=== PATIENT | male | born 1950 | race Caucasian/White ===

== ENCOUNTER → 2018-02-20 | Outpatient (CLI) | payer MEDICARE, OTHER ==
[~2018-02-20] MED LIST: LEVITRA20 MG PO; LOTREL 10-20 M1 EACH; NOHOMEMEDICATIONS; NORCO 5-325 TA1 EACH PO; VERAPAMIL ER200 MG PO
== END ==
LOC: M.ULTRA 10:28
DX: M79.89 Other specified soft tissue disorders (principal); M79.662 Pain in left lower leg

== ENCOUNTER 2018-05-26 14:04 | Emergency (ER) | payer MEDICARE, OTHER ==
[~2018-05-26] VITALS: Ht 170.2 cm; Wt 77.1 kg
[~2018-05-26 14:04] MED LIST changes: -LEVITRA20 MG PO; -VERAPAMIL ER200 MG PO
[2018-05-26 15:52] VITALS: BP 162/74
== END 2018-05-26 15:52 | disposition home or self-care (01) ==
LOC: M.ERS 14:04
DX: S61.312A Laceration without foreign body of right middle finger with damage to nail, initial encounter (principal); Z88.2 Allergy status to sulfonamides; W29.0XXA Contact with powered kitchen appliance, initial encounter; Y93.89 Activity, other specified; Y92.89 Other specified places as the place of occurrence of the external cause; Y99.8 Other external cause status

== ENCOUNTER 2018-06-04 17:31 | Inpatient (IN) | payer MEDICARE, OTHER ==
[~2018-06-04] VITALS: Ht 170.2 cm; Wt 83.0 kg
--- NOTE | ~2018-06-04 | CON ---
[facility] [address] [place] [address] CONSULTATION Name: MARGARITA JOSHI Room: [place] [address] ADM IN M.R.#: [id number] Admission: 06/04/18 Attend Phys: Tricia Crowder Discharge: Date of : 54 Report #: [id number] THIS REPORT FOR: //name// CC: Chance Dunham DATE OF SERVICE: 06/05/2018 REQUESTING PHYSICIAN: Ambar Dunham M.D. REASON FOR CONSULTATION: Acute kidney injury. HISTORY OF PRESENT ILLNESS: The patient is a 68-year-old gentleman, with medical history significant for hypertension, presents with complaints of not feeling well, being tired, complained also of feeling that he has some fluid in his belly. He was admitted to the hospital with diagnosis of acute kidney injury. Creatinine was 5. When I discussed his symptoms with the patient, he told me that he has been feeling well for several days; however, for the last couple of months, he is having problems urinating. He said sometimes he has to sit down and put some pressure on the bladder to make sure he can urinate. He also had feeling that his belly was filling up with fluids and those symptoms were present for last 2 months. The patient has been very active physically, been exercising, swimming and doing some other cardiovascular programs. SOCIAL HISTORY: No tobacco or alcohol abuse, is very active physically. MEDICATIONS: Prior to admission included verapamil. REVIEW OF SYSTEMS: Positive for the symptoms as mentioned earlier. PHYSICAL EXAMINATION: GENERAL: He is awake, alert, oriented. VITAL SIGNS: Blood pressure 137/97, heart rate is 74, afebrile. HEENT: Pupils are round. NECK: Supple. LUNGS: Clear. CARDIOVASCULAR: Regular rate. ABDOMEN: Soft. A mass is palpable in his suprapubic area. It is soft, round, about 20 cm in diameter and immediately suspected that is distended bladder. ASSESSMENT: Acute kidney injury due to obstruction. I asked the nurse to place García catheter immediately and 2.3 liters of clear urine was drained. The mass that was palpable in the abdomen immediately came down and nonpalpable anymore that confirms that, that was an overdistended bladder. He has been having this problem for the last couple of months, so I expect that there is some injury to the kidney that may [place] [address] CONSULTATION Name: MARGARITA JOSHI Room: [address] IN [facility]#: [id number] Admission: 06/04/18 Attend Phys: Tricia Crowder Discharge: Date of : 54 Report #: [id number] PLAN: To keep the García catheter and continue with the fluids with respect to his postobstructive diuresis and will consult Urology. Follow his labs. Thank you very much for asking my opinion on acute kidney injury. By: [id number] PREMA Ramirez
[2018-06-04 17:36] VITALS: BP 207/118
[2018-06-04] MEDS ORDERED: LEVITRA20 MG PO (17:42)
[2018-06-04] MEDS ORDERED: VERAPAMIL ER200 MG PO ×2 (17:46)
[2018-06-04 17:57] LABS: ABSOLUTE BASOPHILS 0.1 thou/uL (0.0-0.2); ABSOLUTE EOSINOPHILS 0.5 thou/uL (0.0-0.7); ABSOLUTE LYMPHOCYTES 1.5 thou/uL (0.8-5.3); ABSOLUTE MONOCYTES 0.9 thou/uL (0.0-1.2); ABSOLUTE NEUTROPHILS 8.7 thou/uL (1.6-8.1); BASOPHILS 1.1 %; EOSINOPHILS 4.2 %; HEMATOCRIT 38.4 % (42.0-52.0); HEMOGLOBIN 12.2 gm/dL (14.0-18.0); LYMPHOCYTES 12.6 %; MCH 28.2 pg (26.0-34.0); MCHC 31.9 g/dL (28.0-37.0); MCV 88.4 fL (80.0-100.0); MONOCYTES 7.5 %; MPV 7.7 fl. (7.2-11.1); NUCLEATED RBCS 0 /100WBC; PLATELET COUNT* 293 thou/uL (150-400); POLYS 74.6 %; RBC 4.34 mil/uL (4.50-6.00); RDW-CV 14.1 % (10.5-14.5); WBC 11.7 thou/uL (4.0-11.0)
[2018-06-04 18:04] LABS: ANION GAP 12 mmol/L (7-16); BUN 63 mg/dL (7-18); CALCIUM 9.3 mg/dL (8.5-10.1); CHLORIDE 105 mmol/L (98-107); CO2 23 mmol/L (21-32); CREATININE 5.1 mg/dL (0.6-1.3); GLUCOSE 121 mg/dL (70-99); POTASSIUM 4.6 mmol/L (3.5-5.1); SODIUM 140 mmol/L (136-145)
[2018-06-04 18:06] LABS: APTT 29.5 Seconds (25.0-31.3)
[2018-06-04 18:21] LABS: ALBUMIN 4.1 g/dL (3.4-5.0); ALKALINE PHOSPHATASE 60 U/L (46-116); CK-MB MASS 2.1 ng/mL (<0.5-3.6); LIPASE 257 U/L (73-393); MAGNESIUM 2.3 mg/dL (1.8-2.4); NT-PRO BRAIN NAT PEPTIDE 9503 pg/mL (<300); SGOT 17 U/L (15-37); SGPT 31 U/L (30-65); TOTAL BILIRUBIN 0.4 mg/dL (<0.1-1.0); TOTAL PROTEIN 7.9 g/dL (6.4-8.2); TROPONIN-I LEVEL <0.06 ng/mL (<0.06)
[2018-06-04 20:28] VITALS: BP 165/103
[2018-06-04 22:45] VITALS: BP 159/98
[2018-06-05] VITALS: BP 139/68
[2018-06-05 04:00] VITALS: BP 109/51; BP 137/97
--- NOTE | 2018-06-05 05:20 | NUR ---
PT RECEIEVED FROM ED AT 2039. SAT MAINTAINED IIN 2L NC. ALERT AND ORINETED X4. CALL LIGHT WITHIN REACH AND BED IN LOW POSITION. DENIES ANY CHEST PAIN AND SOB. PT BP 165/103, MEDICATION GIVEN PER EMAR, BP-139/69. PT IS ON NPO FOR CARDIOLOGY CONSULT. HOURLY ROUNDING DONE FOR PT SAFETY.
[2018-06-05 06:10] LABS: ALBUMIN 3.3 g/dL (3.4-5.0); CALCIUM 8.4 mg/dL (8.5-10.1)
--- NOTE | 2018-06-05 07:20 | NUR ---
CHANGE OF SHIFT REPORT GIVEN PATIENT SEEN AT BEDSIDE IN BED ASLLEP ASSUMED PATIENT CARE
[2018-06-05 08:31] LABS: URINE BILIRUBIN NEGATIVE (Negative); URINE BLOOD NEGATIVE (Negative); URINE CLARITY CLEAR; URINE COLOR YELLOW; URINE GLUCOSE-RANDOM NEGATIVE (Negative); URINE KETONES NEGATIVE (Negative); URINE LEUKOCYTES TRACE (Negative); URINE NITRITE NEGATIVE (Negative); URINE PROTEIN NEGATIVE (Negative); URINE UROBILINOGEN 0.2 E.U./dl (0.2-1.0)
[2018-06-05 08:58] LABS: BACTERIA 1-9 Few /HPF (None Seen); CASTS None Seen /LPF (None Seen); CRYSTALS None Seen /LPF (None Seen); MUCUS 0-3 Light strn/LPF (None Seen); SQUAMOUS 0-3 Few /LPF (0-3); URINE RBC 0-2 Rare /HPF (0-2); URINE WBC 0-5 Rare /HPF (0-5)
[2018-06-05 09:45] LABS: CHOLESTEROL 151 mg/dL (<200); HDL CHOLESTEROL 48 mg/dL (>40); LDL CHOLESTEROL 83 mg/dL (<100); TC:HDL 3.1 Ratio (Not establshd); TRIGLYCERIDE 101 mg/dL (<150); VLDL 20 mg/dL (<40)
[2018-06-05 09:46] LABS: SERUM ASSESSMENT Clear
[2018-06-05 11:42] VITALS: BP 143/91
--- NOTE | 2018-06-05 13:02 | 2DMMODE ---
[place] [address] 2 D/M-MODE ECHOCARDIOGRAM Name: MARGARITA JOSHI Room: [facility] ADM IN [facility]#: [id number] Admission: 06/04/18 Attend Phys: Ambar Dunham Discharge: Date of : 54 Date of Service: 06/05/18 1302 Report #: [id number] THIS REPORT FOR: //name// APPROVED REPORT Study performed: 06/05/2018 11:11:19 EXAM: Comprehensive 2D, Doppler, and color-flow Echocardiogram Patient Location: In-Patient Room #: [facility] Status: routine BSA: 2.13 HR: 90 bpm BP: 137/97 mmHg Other Information Study Quality: Good Indications Dyspnea 2D Dimensions IVSd: 13.06 (7-11mm) LVOT Diam: 20.55 (18-24mm) LVDd: 57.17 mm PWd: 10.64 (7-11mm) Ascending Ao: 33.13 (22-36mm) LVDs: 52.55 (25-40mm) Aortic Root: 30.61 mm Volumes Left Atrial Volume (Systole) LA ESV Index: 25.20 mL/m2 Aortic Valve AoV Peak Alexis.: 0.95 m/s AO Peak Gr.: 3.59 mmHg LVOT Max P.23 mmHg AO Mean Gr.: 2.27 mmHg LVOT Mean P.65 mmHg LVOT Max V: 0.56 m/s AO V2 VTI: 14.88 cm LVOT Mean V: 0.37 m/s JUDITH (VTI): 2.09 cm2 LVOT V1 VTI: 9.36 cm Mitral Valve E/A Ratio: 1.33 MV Decel. Time: 103.60 ms MV E Max Alexis.: 0.80 m/s MV PHT: 30.04 [place] [address] 2 D/M-MODE ECHOCARDIOGRAM Name: MARGARITA JOSHI Room: [address] IN .R.#: [id number] Admission: 06/04/18 Attend Phys: Ambar Dunham Discharge: Date of : 54 Date of Service: 06/05/18 1302 Report #: [id number] MVA (PHT): 7.32 cm2 TDI E/Lateral E': 8.89 E/Medial E': 20.00 Medial E' Alexis.: 0.04 m/s Lateral E' Alexis.: 0.09 m/s Pulmonary Valve PV Peak Alexis.: 0.77 m/s PV Peak Gr.: 2.37 mmHg Tricuspid Valve RAP Estimate: 5.00 mmHg TR Peak Gr.: 39.85 mmHg RVSP: 44.85 mmHg PA Pressure: 44.85 mmHg Left Ventricle Left ventricle is mildly dilated. There is diffuse hypokinesis of left ventricular wall motion. There is normal left ventricular wall thickness. Left ventricular systolic function is severely decreased. LVEF is 25%. The left ventricular diastolic function is normal. Right Ventricle The right ventricle is normal size. The right ventricular systolic function is normal. Atria Left atrium is mildly dilated. The right atrium size is normal. Aortic Valve Mild aortic valve sclerosis. Mild aortic regurgitation. There is no aortic valvular stenosis. Mitral Valve The mitral valve is normal in structure. Mild mitral regurgitation. No evidence of mitral valve stenosis. Tricuspid Valve The tricuspid valve is normal in structure. Moderate tricuspid regurgitation. Moderate pulmonary hypertension. Pulmonic Valve The pulmonary valve is normal in structure. Mild [place]mon[place] [address] 2 D/M-MODE ECHOCARDIOGRAM Name: MARGARITA JOSHI Room: [address] IN [facility]#: [id number] Admission: 06/04/18 Attend Phys: Ambar Dunham Discharge: Date of : 54 Date of Service: 06/05/18 1302 Report #: [id number] Great Vessels The aortic root is normal in size. IVC is normal in size and collapses >50% with inspiration. Pericardium There is no pericardial effusion. <Conclusion> Left ventricle is mildly dilated. There is normal left ventricular wall thickness. Left ventricular systolic function is severely decreased. LVEF is 25%. The left ventricular diastolic function is normal. The right ventricle is normal size. Left atrium is mildly dilated. Mild aortic valve sclerosis. Mild aortic regurgitation. There is no aortic valvular stenosis. The mitral valve is normal in structure. Mild mitral regurgitation. The tricuspid valve is normal in structure. Moderate tricuspid regurgitation. Moderate pulmonary hypertension. IVC is normal in size and collapses >50% with inspiration. There is no pericardial effusion. There is diffuse hypokinesis of left ventricular wall motion. <ELECTRONICALLY SIGNED> By: Robby Quiles MD, FACC 06/05/18 1302 1302 130 Robby Quiles MD, FACC /INF
--- NOTE | 2018-06-05 14:25 | NUR ---
MET WITH PT TO DISCUSS HOME SITUATION/DC PLANNING. PT LIVES ALONE, IS INDEPENDENT AND ACTIVE. USES NO EQUIPMENT AND HASN'T HAD HH. STATES HE HAS SONS, ONE IN [facility] AND ONE IN [place], ALSO HAS GF. PT VOICED CONCERN ABOUT MULTIPLE HEALTH ISSUES AND ACKNOWLEDGES HE'S BEEN TIRED AND FATIGUED LATELY. AWAITING TEST RESULTS. SUPPORT OFFERED. WILL FOLLOW
[2018-06-05 15:25] LABS: CALCIUM 8.6 mg/dL (8.5-10.1); CREATININE 4.6 mg/dL (0.6-1.3); POTASSIUM 4.8 mmol/L (3.5-5.1)
[2018-06-05 16:05] VITALS: BP 172/109
[2018-06-05 16:06] VITALS: BP 167/115
--- NOTE | 2018-06-05 16:15 | EKG ---
[place] [address] ELECTROCARDIOGRAM REPORT Name: MARGARITA JOSHI Room: [place] [address] ADM IN .R.#: [id number] Admission: 06/04/18 Attend Phys: Tricia Crowder Discharge: Date of : 54 Report #: [id number] THIS REPORT FOR: //name// [facility] ED Test Date: 2018-06-04 Test Time: 17:37:05 Pat Name: MARGARITA JOSHI Department: Room: [place] [address] Gender: M Strategic Planning Specialist: MARIA LUZ : 1950 Requested By: Jorge Diamond Order Number: [id number] Lilibeth MD: Robby Quiles Measurements Intervals [place] Rate: 113 P: 73 VT: 160 QRS: -43 QRSD: 95 T: 93 QT: 336 QTc: 461 Interpretive Statements Sinus tachycardia Ventricular bigeminy Left anterior fascicular block Probable left ventricular hypertrophy Nonspecific T abnormalities, lateral leads Compared to ECG 04/06/2017 10:54:10 Ventricular premature complex(es) now present T-wave abnormality now present Electronically Signed On 06-05-2018 16:15:29 HOG OPERATOR by Robby Quiles [email or web address] <ELECTRONICALLY SIGNED> By: Robby Quiles MD, FACC 06/05/18 1615 1737 173 Robby Quiles MD, FAC /EPI
--- NOTE | 2018-06-05 16:17 | EKG ---
[place] [address] ELECTROCARDIOGRAM REPORT Name: MARGARITA JOSHI Room: [place] [address] ADM IN .R.#: [id number] Admission: 06/04/18 Attend Phys: Tricia Crowder Discharge: Date of : 54 Report #: [id number] THIS REPORT FOR: //name// [facility] Test Date: 2018-06-04 Test Time: 23:55:54 Pat Name: MARGARITA JOSHI Department: Room: [facility] Gender: M [employer] Former: MR : 1950 Requested By: Jorge Diamond Order Number: [id number] MD: Robby Quiles Measurements Intervals [place] Rate: 69 P: 62 MI: 190 QRS: -35 QRSD: 96 T: 156 QT: 459 QTc: 492 Interpretive Statements Sinus rhythm Left ventricular hypertrophy Possible anterior infarct, age indeterminate Lateral leads are also involved Compared to ECG 04/06/2017 10:54:10 Left ventricular hypertrophy now present Myocardial infarct finding now present Electronically Signed On 06-05-2018 16:17:17 PAINT PREP TECHNICIAN by Robby Quiles [email or web address] <ELECTRONICALLY SIGNED> By: Robby Quiles MD, FACC 06/05/18 1617 [id number] Robby Quiles MD, FAC /EPI
--- NOTE | 2018-06-05 16:19 | EKG ---
[place] [address] ELECTROCARDIOGRAM REPORT Name: MARGARITA JOSHI Room: [place] [address] ADM IN .R.#: [id number] Admission: 06/04/18 Attend Phys: Tricia Crowder Discharge: Date of : 54 Report #: [id number] THIS REPORT FOR: //name// [facility] Test Date: 2018-06-05 Test Time: 05:25:22 Pat Name: MARGARITA JOSHI Department: Room: [place] [address] Gender: M Employee Placement Specialist: [facility] [facility] : 1950 Requested By: Jorge Diamond Order Number: [id number] Lilibeth MD: Robby Quiles Measurements Intervals [place] Rate: 72 P: 69 PA: 199 QRS: -33 QRSD: 97 T: 173 QT: 447 QTc: 490 Interpretive Statements Sinus rhythm Probable left atrial enlargement Left ventricular hypertrophy Abnrm T, consider ischemia, anterolateral lds Compared to ECG 04/06/2017 10:54:10 Left ventricular hypertrophy now present Possible ischemia now present Electronically Signed On 06-05-2018 16:19:13 ELECTRONIC SPECIALIST by Robby Quiles [email or web address] <ELECTRONICALLY SIGNED> By: Robby Quiles MD, [facility] 06/05/18 1619 0525 0525 Robby Quiles MD, [facility] /EPI
[2018-06-05 18:01] LABS: SMEAR FOR EOSINOPHILS No Eosinophils Seen
[2018-06-05 19:10] LABS: GLYCOHEMOGLOBIN (HGB A1C) 5.7 % (4.8-5.6)
[2018-06-05 20:00] VITALS: BP 131/81
[2018-06-06] VITALS: BP 147/79
[2018-06-06 04:00] VITALS: BP 158/102
[2018-06-06 04:46] LABS: HEMATOCRIT 35.8 % (42.0-52.0); HEMOGLOBIN 11.3 gm/dL (14.0-18.0); MCH 28.4 pg (26.0-34.0); MCHC 31.7 g/dL (28.0-37.0); MCV 89.5 fL (80.0-100.0); MPV 7.9 fl. (7.2-11.1); WBC 9.8 thou/uL (4.0-11.0)
[2018-06-06 05:18] LABS: ALBUMIN 3.2 g/dL (3.4-5.0); CALCIUM 8.6 mg/dL (8.5-10.1); CREATININE 4.3 mg/dL (0.6-1.3); MAGNESIUM 2.1 mg/dL (1.8-2.4); PHOSPHORUS* 5.2 mg/dL (2.5-4.9); POTASSIUM 4.7 mmol/L (3.5-5.1); TOTAL BILIRUBIN 0.4 mg/dL (<0.1-1.0)
--- NOTE | 2018-06-06 05:40 | NUR ---
ASSUMED CARE OF PT AFTER REPORT AT 1930. PT A&OX4. VSS. PHYSICAL ASSESSMENT COMLPETED AND CHARTED. PT ON RA WITH 96% O2 SAT. PT TRACING SR ON TELE. PT UP ADLIB TO RESTROOM. PT WITH CARR TO DEPENDENT DRAIN WITH BLOOD TINGED OUTPUT NOTED. STARTED 24 HOUR URINE PROTEIN. NO URINE OUTPUT FOR SEVERAL HOURS.FLUSHED CARR. CLOTS NOTED. HOURLY ROUNDING OBSERVED. CALL LIGHT WITHIN REACH. BED IN LOW POSITION.
--- NOTE | 2018-06-06 07:25 | NUR ---
CHANGE OF SHIFT BEDSIDE REPORT GIVEN PATIENT SEEN AT BEDSIDE, IN BED ASLEEP ASSUMED PATIENT CARE
[2018-06-06 07:55] VITALS: BP 144/103
[2018-06-06 11:42] VITALS: BP 139/94
[2018-06-06 16:03] VITALS: BP 148/97
--- NOTE | 2018-06-06 17:33 | CARDNUC ---
[place] [address] CARDIAC NUCLEAR IMAGING REPORT Name: MARGARITA JOSHI Room: [address] IN [facility]#: [id number] Admission: 06/04/18 Attend Phys: Ambar Dunham Discharge: Date of : 54 Date of Service: 06/06/18 1733 Report #: [id number] THIS REPORT FOR: //name// APPROVED REPORT Study performed: 06/05/2018 08:27:00 Indication: Chest pain, Dyspnea Patient Location: In-Patient Room #: 227 Stress Tech: Aaliyah Calixto Stress Nurse: Katherine Albert RN Ht: 5 ft 7 in Wt: 177 lbs BSA: 1.92 m2 BMI: 27.71 Medical History Medical History: renal failure, ef 25%, hyperlipidemia, hypertension Medications: coreg Allergies: sulfa Cardiac Risk Factors: age, hyperlipidemia, hypertension Previous Cardiac Procedures: none Exercise History: Physically active Meds Held (24 hrs): coreg Resting Data Rest SPECT myocardial perfusion imaging was performed in supine position 30 minutes following the intravenous injection of 11.7 mCi of Tc-99m Sestamibi. Time of rest injection: 14:00 Date: 06/05/2018 The images were gated to evaluate regional wall motion and calculate left ventricular ejection fraction. Administration Route: IV Administration Site: Right AC Pharmacologic Stress Pharmacologic stress test was performed by injecting Regadenoson 0.4 mg IV push over 10-15 seconds immediately followed by the intravenous injection of 36.0 mCi of Tc-99m Sestamibi. Time of stress injection: 09:00 Date: 06/06/2018 Administration Route: IV Administration Site: Right AC Heart Rate at time of stress injection: 91 bpm. Gated Stress SPECT was performed 40 minutes [place] [address] CARDIAC NUCLEAR IMAGING REPORT Name: MARGARITA JOSHI Room: [address] IN ..#: [id number] Admission: 06/04/18 Attend Phys: Ambar Dunham Discharge: Date of : 54 Date of Service: 06/06/18 1733 Report #: [id number]. The images were gated to evaluate regional wall motion and calculate left ventricular ejection fraction. Prone imaging was performed. Stress Test Details Stress Test: Pharmacologic stress testing performed using 0.4 mg of regadenoson per 5 mL given IV over 10 seconds. Reason for pharmacologic stress test: physical limitation. HR Max Heart Rate (APMHR): 154 bpm Resting HR: 80 bpm Target HR (85% APMHR): 130 bpm Max HR Achieved: 91 bpm % of APMHR: 59 Recovery HR: 90 bpm BP Resting BP: 175/118 mmHg Max BP: 168/97 mmHg Recovery BP: 154/94 mmHg ECG Resting ECG: Sinus Rhythm, nonspecific ST-T abnormalities Stress ECG: Sinus Rhythm, nonspecific ST-T abnormalities ST Change: None Arrhythmia: None Recovery ECG: Sinus Rhythm, nonspecific ST-T abnormalities Recovery ST Change: None Recovery Arrhythmia: None Clinical Reason for Termination: Completed protocol Exercise duration: 0 min sec Exercise capacity: 1 METs The patient tolerated Lexiscan infusion without significant symptoms. Nurse Comments pt was given 10 mg of hydralizine per order from [employer] core piler for hypertension. pt unable to walk treadmill due to sever soa andgeneralized weakness Stress ECG Conclusion The baseline 12-lead EKG show sinus rhythm with diffuse nonspecific depression and T-wave inversion. EKGs obtained [place] [address] CARDIAC NUCLEAR IMAGING REPORT Name: MARGARITA JOSHI Room: [address] IN [facility]#: [id number] Admission: 06/04/18 Attend Phys: Ambar Dunham Discharge: Date of : 54 Date of Service: 06/06/18 1733 Report #: [id number] Lexiscan infusion show sinus rhythm with no significant ST or T wave changes when compared to baseline. There were no stress-induced arrhythmias. Study Quality Study: Good Artifact: Moderate Diaphragmatic artifact Study Data At rest, the left ventricular ejection fraction was 22%.. Post stress, the left ventricular ejection was 30%.. TID = 0.98. Perfusion There is photopenia in the images obtained at rest and post stress in the supine position that resolves with post stress prone imaging consistent with diaphragmatic attenuation artifact. There is some focal apical thinning that resolves with prone imaging. No significant reversible defects were identified. Wall Motion The left ventricle is dilated. There is severe global hypokinesis. Nuclear Conclusion ECG Findings: non-diagnostic Clinical Findings: negative for ischemia Nuclear Findings: negative for ischemia Exercise Capacity: not assessed Left Ventricular Function: abnormal Myocardial perfusion images show no reversible defect to suggest ischemia. There is severe global hypokinesis noted on gated studies. The left ventricle appears dilated. This is a high risk study due to underlying left ventricular systolic motion that is severe. <Conclusion> The baseline 12-lead EKG show sinus rhythm with diffuse nonspecific depression and T-wave inversion. EKGs obtained during and post Lexiscan infusion show sinus rhythm with no significant ST or T wave changes when compared to baseline. There were no stress-induced arrhythmias. <ELECTRONICALLY SIGNED> By: Devin Perez MD, FACC 06/06/18 1733 173 173 Devin Perez MD, FACC /INF
[2018-06-06 19:08] LABS: HEPATITIS B SURFACE AG Negative (Negative)
[2018-06-06 20:00] VITALS: BP 137/102
[2018-06-07] VITALS: BP 101/53
[2018-06-07 04:00] VITALS: BP 119/72
--- NOTE | 2018-06-07 05:02 | NUR ---
ASSUMED CARE OF PT AFTER REPORT AT 1930. PT A&OX4. VSS. PHYSICAL ASSESSMENT COMPLETED AND CHARTED. PT ON RA WITH 98% O2 SAT. PT TRACING SR ON TELE. PT WITH CARR TO DEPENDENT DRAIN. PT UP ADLIB TO RESTROOM. DENIES ANY PAIN OR DISCOMFORT. HOURLY ROUNDING OBSERVED. CALL LIGHT WITHIN REACH.
[2018-06-07 05:04] LABS: HEMOGLOBIN 10.2 gm/dL (14.0-18.0); MCV 88.1 fL (80.0-100.0); MPV 7.7 fl. (7.2-11.1); RBC 3.52 mil/uL (4.50-6.00); RDW-CV 13.6 % (10.5-14.5); WBC 7.9 thou/uL (4.0-11.0)
[2018-06-07 05:22] LABS: CALCIUM 7.7 mg/dL (8.5-10.1); CREATININE 3.7 mg/dL (0.6-1.3); MAGNESIUM 1.8 mg/dL (1.8-2.4); POTASSIUM 3.9 mmol/L (3.5-5.1)
[2018-06-07 08:00] VITALS: BP 136/92
[2018-06-07 08:07] LABS: ANA INTERPRETATION Negative (Negative)
--- NOTE | 2018-06-07 09:07 | NUR ---
RECEIVED REPORT FROM LUKE AND ASSUMED CARE OF PT @ 6895.PT IS A/O X4,BP SLIGHTLY ELEVATED AT 136/92-MEDICATIONS GIVEN, OTHER VSS,TRACING SR ON THE MONITOR.ASSESSMENT CHARTED.IV PATENT WITH IVF INFUSING PER ORDERS.PT IS CALM AND COOPERATIVE WITH NO C/O PAIN AT TIME OF ASSESSMENT. PT IS UP AD ESTEFANIA IN ROOM.FAMILY AT BEDSIDE.PT LEFT RESTING IN BED WITH CALL LIGHT WITHIN REACH.WILL CONTINUE TO MONITOR.
--- NOTE | 2018-06-07 09:44 | NUR ---
suture removal right middle finger. eight sutures removed and identified. primary nurse notified.
[2018-06-07 10:10] LABS: GLOMERULR BASEM MEMBRN AB 3 units (0-20)
--- NOTE | 2018-06-07 12:00 | NUR ---
CONTINUE TO FOLLOW, MET WITH PT. HE CONTINUES TO DENY ANY DC NEEDS, AWARE HE WILL HAVE TO GO HOME WITH CARR. STATES HIS SON IS FLYING IN FROM [place] SOON AND WILL BE WITH HIM. ALSO HAS SON IN TOWN THAT CAN ASSIST. PT STATES STILL TRYING TO ABSORB ALL THE INFO RECEIVED. PT DOESN'T HAVE A DPOA, HE PLANS TO CONSIDER AND PURSUE. HAS INFO AT HOME HE STATES. CM TO FOLLOW
[2018-06-07 12:26] VITALS: BP 131/185
[2018-06-07 15:38] VITALS: BP 141/91
[2018-06-07 16:07] LABS: URINE PROTEIN (MG/DL) 9.5 mg/dL (Not Estab.)
--- NOTE | 2018-06-07 17:00 | NUR ---
VSS,CARDIAC MONITORING IN PLACE WITH NO CHANGES.PT REMAINS ON ROOM AIR.PT PROGRESSING TOWARDS GOALS.NO C/O PAIN.IV PATENT AND SALINE LOCKED.STITCHES REMOVED FROM MIDDLE RIGHT FINGER BY STUDENT NURSE AND INSTRUCTOR WITH NO COMPLICATIONS.PT INFORMED OF PLAN OF CARE AND COMMUNICATES UNDERSTANDING.PT IS UP AD ESTEFANIA IN ROOM.HOURLY ROUNDING COMPLETED FOR PT SAFETY.CALL LIGHT WITHIN REACH.WILL CONTINUE TO MONITOR FOR DURATION OF SHIFT.
[2018-06-07 19:12] LABS: ANA INTERPRETATION Negative (())
[2018-06-07 19:45] VITALS: BP 111/67
[2018-06-08] VITALS: BP 129/84
--- NOTE | 2018-06-08 03:46 | NUR ---
END SHIFT: PT RESTED WELL. NO COMPLAINTS. NO PAIN. AMBULATES WITHOUT DIFFICULTY WITH CATHETER IN PLACE. DRAINING ADEQUATE. REMAINS BLOOD TINGED WITH CLOTS. NSR ON MONITOR, NO CHANGES. AWAITING REPEAT RENAL US AND DC HOME. SAFETY PRECAUTIONS IN PLACE. VSS. ASSESSMENT UNCHANGED. CALL LIGHT IN REACH. WILL CONT TO MONITOR.
[2018-06-08 04:00] VITALS: BP 124/76
--- NOTE | 2018-06-08 04:39 | NUR ---
ASSUMED PT CARE AT 0430. PT ON ROOM AIR AND RUNNING NSR ON HORIZONTAL RESAW OPERATOR. PT RESTING IN BED WITH EYES CLOSED. NO C/O PAIN AT THIS TIME. HOURLY ROUNDING COMPLETED. WILL CONTINUE TO MONITOR.
[2018-06-08 05:08] LABS: CALCIUM 8.5 mg/dL (8.5-10.1); CREATININE 3.7 mg/dL (0.6-1.3); MAGNESIUM 1.8 mg/dL (1.8-2.4); PHOSPHORUS* 4.5 mg/dL (2.5-4.9); POTASSIUM 4.3 mmol/L (3.5-5.1)
[2018-06-08 08:10] VITALS: BP 143/92
--- NOTE | 2018-06-08 09:47 | NUR ---
Pt continues to decline HH. No needs anticipated at dc.
--- NOTE | 2018-06-08 10:16 | NUR ---
RECEIVED REPORT FROM MOLLY AND ASSUMED CARE OF PT @ 8422.PT IS A/O X4,VSS,TRACING SR ON THE MONITOR.ASSESSMENT CHARTED.IV PATENT WITH IVF INFUSING PER ORDERS.CARR SECURE AND PATENT-BLOOD TINGED WITH CLOTS.PT IS CALM AND COOPERATIVE WITH NO C/O PAIN.PT IS UP AD ESTEFANIA IN ROOM.CALL LIGHT WITHIN REACH.LEFT RESTING IN BED.WILL CONTINUE TO MONITOR.
[2018-06-08 12:00] VITALS: BP 137/90
[2018-06-08 16:00] VITALS: BP 138/86
--- NOTE | 2018-06-08 17:30 | NUR ---
VSS,CARDIAC MONITORING IN PLACE WITH NO CHANGES.PT REMAINS ON ROOM AIR.NEW IV INSERTED IN RIGHT FOREARM.IV PATENT WITH IVF INFUSING PER ORDERS.CARR SECURE AND IN PLACE.RENAL US COMPLETED.PT PROGRESSING TOWARDS GOALS.NO C/O PAIN.PT HAS AMBULATED IN HALLWAY SEVERAL TIMES BY SELF.PT INFORMED OF PLAN OF CARE AND COMMUNICATES UNDERSTANDING.HOURLY ROUNDING COMPLETED FOR PT SAFETY.CALL LIGHT WITHIN REACH.WILL CONTINUE TO MONITOR FOR DURATION OF SHIFT.
[2018-06-08 20:00] VITALS: BP 115/71
[2018-06-09] VITALS: BP 109/64
--- NOTE | 2018-06-09 03:43 | NUR ---
ASSUMED PT CARE AT 1930. ASSESSMENT COMPLETED CHARTED. PT RESTING IN BED MOST OF THE NIGHT. UP AD ESTEFANIA. CARR DRAINING BLOOD TINGED URINE WITH NO PROBLEMS. NO C/O CHEST PAIN NOTED. C/O RIGHT ANKLE PAIN NOTED EARLIER IN SHIFT BUT GOT BETTER AFTER DAY SHIFT GAVE HYRDOCODONE. WILL CONTINUE TO MONITOR.
[2018-06-09 04:00] VITALS: BP 114/74
[2018-06-09 04:45] LABS: CALCIUM 7.7 mg/dL (8.5-10.1); CREATININE 3.4 mg/dL (0.6-1.3); MAGNESIUM 1.7 mg/dL (1.8-2.4); POTASSIUM 4.1 mmol/L (3.5-5.1)
[2018-06-09 07:55] VITALS: BP 112/66
[2018-06-09] MEDS ORDERED: FLOMAX0.4 MG PO ×2 (08:37)
[2018-06-09] MEDS ORDERED: PREDNISONE 10 M10 M1 PO ×2 (08:37)
[2018-06-09] MEDS ORDERED: CARVEDILOL12.5 MG PO ×2 (08:37)
[2018-06-09 10:42] VITALS: BP 112/66
--- NOTE | 2018-06-09 11:41 | NUR ---
RECEIVED REPORT FROM MAGALI AND ASSUMED CARE OF PT @ 0723.PT IS A/O X4,VSS,TRACING SR ON THE MONITOR.ASSESSMENT CHARTED.IV PATENT WITH IV FLUIDS INFUSING PER ORDERS.PT IS CALM AND COOPERATIVE WITH PAIN IN ANKLE FROM GOUT.STERIODS STARTED.PT IS UP AD ESTEFANIA IN ROOM.PT LEFT RESTING IN BED WITH CALL LIGHT WITHIN REACH.WILL CONTINUE TO MONITOR.
[2018-06-09 12:00] VITALS: BP 129/81
--- NOTE | 2018-06-09 12:14 | NUR ---
PT OK FOR DISCHARGE.PAPERWORK COMPLETED AND GIVEN TO THE PT.SCRIPTS GIVEN WITH EDUCATION.IV REMOVED.HEART MONITOR REMOVED AND RETURNED TO NURSING STATION.PT WILL GO HOME WITH CARR IN PLACE.PT EDUCATED ON CARR CARE.CARR PATENT AND SECURE.CARDIOLOGY OFFICE CALLED TO SCHEDULE FOLLOW UP APPOINTMENT.
[2018-06-10 10:11] LABS: URINE PROTEIN (MG/DL) 163.3 mg/dL (Not Estab.)
[2018-06-10 13:07] LABS: ANTI-DNA SCREEN <1 IU/mL (0-9); ANTI-RNP <0.2 AI (0.0-0.9)
[2018-06-10 17:07] LABS: GLOBULIN TOTAL 2.7 g/dL (2.2-3.9); M-SPIKE Not Observed g/dL (Not Observed)
[2018-06-10] MEDS ORDERED: KEFLEX500 M1 PO (21:06)
[2018-06-11 11:09] VITALS: BP 112/66
== END 2018-06-09 13:00 | disposition home or self-care (01) | DRG 698 ==
LOC: M.ERS 17:31 → M.2W 18:29 → M.TBA-ER 18:29 → M.2W 20:45
PROVIDERS: Family Medicine; Internal Medicine; Internal Medicine Nephrology; Nurse Practitioner Family; ADMIT Internal Medicine
DX: N13.9 Obstructive and reflux uropathy, unspecified (principal); N17.0 Acute kidney failure with tubular necrosis; J96.01 Acute respiratory failure with hypoxia; I50.21 Acute systolic (congestive) heart failure; I13.0 Hypertensive heart and chronic kidney disease with heart failure and stage 1 through stage 4 chronic kidney disease, or unspecified chronic kidney disease; I16.1 Hypertensive emergency; I42.9 Cardiomyopathy, unspecified; N18.9 Chronic kidney disease, unspecified; R33.9 Retention of urine, unspecified; M10.061 Idiopathic gout, right knee; E83.42 Hypomagnesemia; R73.03 Prediabetes; Z88.2 Allergy status to sulfonamides; Z82.49 Family history of ischemic heart disease and other diseases of the circulatory system; Z79.82 Long term (current) use of aspirin; Z79.899 Other long term (current) drug therapy

== ENCOUNTER 2018-06-10 18:59 | Emergency (ER) | payer MEDICARE, OTHER ==
[~2018-06-10] VITALS: Ht 170.2 cm; Wt 77.1 kg
[~2018-06-10 18:59] MED LIST changes: +CARVEDILOL12.5 MG PO; +FLOMAX0.4 MG PO; +LEVITRA20 MG PO; +PREDNISONE 10 M10 M1 PO; +VERAPAMIL ER200 MG PO
[2018-06-10 20:36] LABS: URINE BILIRUBIN NEGATIVE (Negative); URINE BLOOD 3+ (Negative); URINE CLARITY CLOUDY; URINE COLOR RED; URINE GLUCOSE-RANDOM NEGATIVE (Negative); URINE KETONES TRACE (Negative); URINE LEUKOCYTES-REFLEX 1+ (Negative); URINE PROTEIN 3+ (Negative); URINE SPECIFIC GRAVITY 1.015 (1.005-1.030)
[2018-06-10 20:37] LABS: URINE NITRITE-REFLEX POSITIVE (Negative)
[2018-06-10 20:40] LABS: HEMATOCRIT 34.7 % (42.0-52.0); HEMOGLOBIN 11.2 gm/dL (14.0-18.0); MCH 28.2 pg (26.0-34.0); MCHC 32.2 g/dL (28.0-37.0); MCV 87.7 fL (80.0-100.0); MPV 7.7 fl. (7.2-11.1); NUCLEATED RBCS 0 /100WBC; PLATELET COUNT* 244 thou/uL (150-400); RBC 3.96 mil/uL (4.50-6.00); RDW-CV 13.7 % (10.5-14.5)
[2018-06-10 20:41] LABS: BACTERIA-REFLEX None Seen /HPF (None Seen); CASTS None Seen /LPF (None Seen); SQUAMOUS 0-3 Few /LPF (0-3); URINE RBC >20 Many /HPF (0-2); URINE WBC-REFLEX None Seen /HPF (0-5)
[2018-06-10 20:42] LABS: CRYSTALS None Seen /LPF (None Seen)
[2018-06-10 20:44] LABS: CALCIUM 8.9 mg/dL (8.5-10.1); CREATININE 3.6 mg/dL (0.6-1.3); POTASSIUM 4.9 mmol/L (3.5-5.1)
[2018-06-10 20:49] LABS: ALBUMIN 3.5 g/dL (3.4-5.0); TOTAL BILIRUBIN 0.3 mg/dL (<0.1-1.0); TOTAL PROTEIN 7.4 g/dL (6.4-8.2)
[2018-06-10 20:59] LABS: ABSOLUTE LYMPHOCYTES 0.4 thou/uL (0.8-5.3); ABSOLUTE MONOCYTES 0.4 thou/uL (0.0-1.2); ABSOLUTE NEUTROPHILS 12.2 thou/uL (1.6-8.1); PLATELET ESTIMATE ADEQUATE
[2018-06-10] MEDS ORDERED: KEFLEX500 M1 PO (21:06)
[2018-06-10 21:29] LABS: APTT 28.5 Seconds (25.0-31.3); PROTIME 9.8 Seconds (9.20-11.50)
[2018-06-10 21:43] VITALS: BP 143/85
== END 2018-06-10 21:43 | disposition home or self-care (01) ==
LOC: M.ERS 18:59
PROVIDERS: Nurse Practitioner Family
DX: N39.0 Urinary tract infection, site not specified (principal); Z88.2 Allergy status to sulfonamides; Z98.890 Other specified postprocedural states

== ENCOUNTER 2018-06-12 21:42 | Emergency (ER) | payer MEDICARE, OTHER ==
[~2018-06-12] VITALS: Ht 170.2 cm; Wt 76.2 kg
[~2018-06-12 21:42] MED LIST changes: +KEFLEX500 M1 PO
[2018-06-12 22:38] LABS: ABSOLUTE BASOPHILS 0.1 thou/uL (0.0-0.2); ABSOLUTE LYMPHOCYTES 0.9 thou/uL (0.8-5.3); ABSOLUTE MONOCYTES 0.8 thou/uL (0.0-1.2); ABSOLUTE NEUTROPHILS 11.5 thou/uL (1.6-8.1); BASOPHILS 0.4 %; HEMATOCRIT 35.8 % (42.0-52.0); HEMOGLOBIN 11.6 gm/dL (14.0-18.0); MCHC 32.3 g/dL (28.0-37.0); MCV 86.5 fL (80.0-100.0); MONOCYTES 5.9 %; MPV 7.7 fl. (7.2-11.1); NUCLEATED RBCS 0 /100WBC; PLATELET COUNT* 297 thou/uL (150-400); POLYS 86.7 %; RBC 4.13 mil/uL (4.50-6.00); RDW-CV 13.7 % (10.5-14.5); WBC 13.3 thou/uL (4.0-11.0)
[2018-06-12 22:46] LABS: CALCIUM 8.8 mg/dL (8.5-10.1); CREATININE 3.4 mg/dL (0.6-1.3); POTASSIUM 4.9 mmol/L (3.5-5.1)
[2018-06-12 22:50] LABS: APTT 26.6 Seconds (25.0-31.3); PROTIME 9.9 Seconds (9.20-11.50)
[2018-06-12 22:51] LABS: ALBUMIN 3.6 g/dL (3.4-5.0); TOTAL BILIRUBIN 0.3 mg/dL (<0.1-1.0); TOTAL PROTEIN 7.4 g/dL (6.4-8.2)
[2018-06-12 23:41] VITALS: BP 133/71
== END 2018-06-12 23:41 | disposition home or self-care (01) ==
LOC: M.ERS 21:42
PROVIDERS: Nurse Practitioner Family
DX: T83.098A Other mechanical complication of other urinary catheter, initial encounter (principal); R31.0 Gross hematuria; Z88.2 Allergy status to sulfonamides; Z98.890 Other specified postprocedural states; Y84.9 Medical procedure, unspecified as the cause of abnormal reaction of the patient, or of later complication, without mention of misadventure at the time of the procedure; Y92.89 Other specified places as the place of occurrence of the external cause

== ENCOUNTER 2018-06-13 18:59 | Emergency (ER) | payer MEDICARE, OTHER ==
[~2018-06-13] VITALS: Ht 170.2 cm; Wt 77.1 kg
[2018-06-13 19:49] LABS: HEMATOCRIT 36.1 % (42.0-52.0); HEMOGLOBIN 11.8 gm/dL (14.0-18.0); MCH 28.6 pg (26.0-34.0); MCHC 32.7 g/dL (28.0-37.0); MCV 87.5 fL (80.0-100.0); MPV 7.7 fl. (7.2-11.1); NUCLEATED RBCS 0 /100WBC; PLATELET COUNT* 295 thou/uL (150-400); RBC 4.13 mil/uL (4.50-6.00); WBC 12.3 thou/uL (4.0-11.0)
[2018-06-13 19:56] LABS: CALCIUM 8.4 mg/dL (8.5-10.1); CREATININE 3.4 mg/dL (0.6-1.3); POTASSIUM 4.9 mmol/L (3.5-5.1)
[2018-06-13 20:00] LABS: ALBUMIN 3.6 g/dL (3.4-5.0); TOTAL BILIRUBIN 0.2 mg/dL (<0.1-1.0); TOTAL PROTEIN 7.1 g/dL (6.4-8.2)
[2018-06-13 20:13] LABS: ABSOLUTE LYMPHOCYTES 0.9 thou/uL (0.8-5.3); ABSOLUTE MONOCYTES 0.5 thou/uL (0.0-1.2); ABSOLUTE NEUTROPHILS 10.9 thou/uL (1.6-8.1); PLATELET ESTIMATE ADEQUATE
[2018-06-13 20:34] LABS: URINE BLOOD 3+ (Negative); URINE CLARITY CLOUDY; URINE COLOR RED; URINE GLUCOSE-RANDOM TRACE (Negative); URINE KETONES TRACE (Negative); URINE PROTEIN 3+ (Negative)
[2018-06-13 20:35] LABS: ICTOTEST (BILI CONFIRMATORY) Negative (Negative); URINE BILIRUBIN 2+ (Negative); URINE LEUKOCYTES-REFLEX 2+ (Negative); URINE NITRITE-REFLEX POSITIVE (Negative)
[2018-06-13 20:42] VITALS: BP 131/68
[2018-06-13 20:54] LABS: BACTERIA-REFLEX 1-9 Few /HPF (None Seen); CASTS None Seen /LPF (None Seen); CRYSTALS None Seen /LPF (None Seen); SQUAMOUS NONE SEEN /LPF (0-3); URINE RBC >20 Many /HPF (0-2); URINE WBC-REFLEX 6-15 Few /HPF (0-5)
== END 2018-06-13 20:43 | disposition home or self-care (01) ==
LOC: M.ERS 18:59
PROVIDERS: Physician Assistant
DX: T83.098A Other mechanical complication of other urinary catheter, initial encounter (principal); N19 Unspecified kidney failure; Z98.890 Other specified postprocedural states; Z88.2 Allergy status to sulfonamides; Y84.8 Other medical procedures as the cause of abnormal reaction of the patient, or of later complication, without mention of misadventure at the time of the procedure; Y92.89 Other specified places as the place of occurrence of the external cause

== ENCOUNTER → 2018-09-23 | Outpatient (CLI) | payer MEDICARE, OTHER ==
--- NOTE | 2018-09-23 10:52 | 2DMMODE ---
[place] [address] 2 D/M-MODE ECHOCARDIOGRAM Name: MARGARITA JOSHI Room: [facility]#: [id number] Admission: 09/23/18 Attend Phys: Devin Perez, Discharge: Date of : 54 Date of Service: 09/23/18 1052 Report #: [id number] THIS REPORT FOR: //name// APPROVED REPORT Study performed: 09/23/2018 08:24:00 EXAM: Comprehensive 2D, Doppler, and color-flow Echocardiogram Patient Location: Out-Patient BSA: 1.94 HR: 55 bpm BP: 130/90 mmHg Other Information Study Quality: Good Indications Cardiomyopathy 2D Dimensions IVSd: 13.43 (7-11mm) LVOT Diam: 20.90 (18-24mm) LVDd: 49.93 mm PWd: 11.67 (7-11mm) Ascending Ao: 32.82 (22-36mm) LVDs: 35.05 (25-40mm) Aortic Root: 30.36 mm Volumes Left Atrial Volume (Systole) LA ESV Index: 14.90 mL/m2 Aortic Valve AoV Peak Alexis.: 1.45 m/s AO Peak Gr.: 8.46 mmHg LVOT Max P.05 mmHg AO Mean Gr.: 4.74 mmHg LVOT Mean P.09 mmHg LVOT Max V: 0.72 m/s AO V2 VTI: 31.81 cm LVOT Mean V: 0.48 m/s JUDITH (VTI): 1.75 cm2 LVOT V1 VTI: 16.25 cm Mitral Valve E/A Ratio: 0.72 MV Decel. Time: 244.49 ms MV E Max Alexis.: 0.59 m/s MV PHT: 70.90 ms MVA (PHT): 3.10 cm2 [place] [address] 2 D/M-MODE ECHOCARDIOGRAM Name: MARGARITA JOSHI Room: [facility]#: [id number] Admission: 09/23/18 Attend Phys: Devin Perez, Discharge: Date of : 54 Date of Service: 09/23/18 1052 Report #: [id number] TDI E/Lateral E': 11.80 E/Medial E': 9.83 Medial E' Alexis.: 0.06 m/s Lateral E' Alexis.: 0.05 m/s Pulmonary Valve PV Peak Alexis.: 0.92 m/s PV Peak Gr.: 3.41 mmHg Left Ventricle The left ventricle is normal size. Inferobasilar hypokinesis is noted. There is normal left ventricular wall thickness. Left ventricular systolic function is mildly decreased. LVEF is 45-50%. Grade I - abnormal relaxation pattern. Right Ventricle The right ventricle is normal size. The right ventricular systolic function is normal. Atria The left atrium size is normal. The right atrium size is normal. Aortic Valve Mild aortic valve sclerosis. Trace aortic regurgitation. There is no aortic valvular stenosis. Mitral Valve The mitral valve is normal in structure. There is no mitral valve regurgitation noted. No evidence of mitral valve stenosis. Tricuspid Valve The tricuspid valve is normal in structure. There is no tricuspid valve regurgitation noted. Pulmonic Valve The pulmonary valve is normal in structure. Mild pulmonic regurgitation. Great Vessels The aortic root is normal in size. IVC is normal in size and collapses >50% with inspiration. Pericardium There is no [place] [address] 2 D/M-MODE ECHOCARDIOGRAM Name: MARGARITA JOSHI Room: [facility]#: [id number] Admission: 09/23/18 Attend Phys: Devin Perez, Discharge: Date of : 54 Date of Service: 09/23/18 1052 Report #: [id number] <Conclusion> The left ventricle is normal size. There is normal left ventricular wall thickness. Left ventricular systolic function is mildly decreased. LVEF is 45-50%. Grade I - abnormal relaxation pattern. The right ventricle is normal size. The left atrium size is normal. Mild aortic valve sclerosis. Trace aortic regurgitation. There is no aortic valvular stenosis. The mitral valve is normal in structure. The tricuspid valve is normal in structure. IVC is normal in size and collapses >50% with inspiration. There is no pericardial effusion. Inferobasilar hypokinesis is noted. <ELECTRONICALLY SIGNED> By: Robby Quiles MD, FACC 09/23/18 1052 51 105 Robby Quiles MD, FACC /INF
== END ==
LOC: M.CRD 09-18 15:00
DX: I35.8 Other nonrheumatic aortic valve disorders (principal); I42.5 Other restrictive cardiomyopathy; Z88.2 Allergy status to sulfonamides

== ENCOUNTER → 2019-05-01 | Outpatient (CLI) | payer MEDICARE, OTHER ==
[~2019-05-01] MED LIST changes: +ALLOPURINOL 10100 M3 PO; +HYDROXYZIN10 MG/5 M2 PO; +IPRAT-ALBUT 0.5-3 ML INH; +NEBULIZER MISCELL; +PREDNISONE50 MG PO; +PROAIR HFA8.5 GM INH
== END ==
LOC: M.RAD 14:17
DX: R05 Cough (principal); R52 Pain, unspecified; R09.81 Nasal congestion

== ENCOUNTER 2019-05-02 21:00 | Emergency (ER) | payer MEDICARE, OTHER ==
[~2019-05-02] VITALS: Ht 170.2 cm; Wt 80.7 kg
[~2019-05-02 21:00] MED LIST changes: -ALLOPURINOL 10100 M3 PO; -HYDROXYZIN10 MG/5 M2 PO; -IPRAT-ALBUT 0.5-3 ML INH; -NEBULIZER MISCELL; -PREDNISONE50 MG PO; -PROAIR HFA8.5 GM INH
[2019-05-02] MEDS ORDERED: HYDROXYZIN10 MG/5 M2 PO (21:11)
[2019-05-02] MEDS ORDERED: ALLOPURINOL 10100 M3 PO (21:12)
[2019-05-02] MEDS ORDERED: PROAIR HFA8.5 GM INH (21:13)
[2019-05-02 21:38] LABS: ABSOLUTE BASOPHILS 0.1 thou/uL (0.0-0.2); ABSOLUTE EOSINOPHILS 0.5 thou/uL (0.0-0.7); ABSOLUTE LYMPHOCYTES 0.9 thou/uL (0.8-5.3); ABSOLUTE MONOCYTES 1.1 thou/uL (0.0-1.2); ABSOLUTE NEUTROPHILS 3.1 thou/uL (1.6-8.1); BASOPHILS 1.1 %; EOSINOPHILS 8.4 %; HEMATOCRIT 42.5 % (42.0-52.0); HEMOGLOBIN 14.1 gm/dL (14.0-18.0); LYMPHOCYTES 15.5 %; MCH 29.6 pg (26.0-34.0); MCHC 33.3 g/dL (28.0-37.0); MONOCYTES 19.6 %; MPV 7.1 fl. (7.2-11.1); NUCLEATED RBCS 0 /100WBC; PLATELET COUNT* 179 thou/uL (150-400); POLYS 55.4 %; RBC 4.78 mil/uL (4.50-6.00); WBC 5.6 thou/uL (4.0-11.0)
[2019-05-02 21:47] LABS: CREATININE 2.8 mg/dL (0.6-1.3); POTASSIUM 4.6 mmol/L (3.5-5.1)
[2019-05-02 21:52] LABS: TOTAL BILIRUBIN 0.2 mg/dL (<0.1-1.0); TOTAL PROTEIN 7.2 g/dL (6.4-8.2)
[2019-05-02] MEDS ORDERED: NEBULIZER MISCELL ×3 (23:23→23:37)
[2019-05-02] MEDS ORDERED: PREDNISONE50 MG PO (23:23)
[2019-05-02] MEDS ORDERED: IPRAT-ALBUT 0.5-3 ML INH (23:23)
[2019-05-02 23:40] VITALS: BP 132/76
--- NOTE | 2019-05-05 16:19 | EKG ---
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 Department: [place]LA[place] : 1950 Requested By: Tena Ybarra Order Number: [id number] MD: Chance Gutierrez Measurements Intervals [place] Rate: 83 P: 74 AK: 227 QRS: -66 QRSD: 99 T: 63 QT: 384 QTc: 452 Interpretive Statements Sinus rhythm Prolonged [place] interval Left anterior fascicular block Baseline wander in lead(s) V1 Compared to ECG 06/05/2018 05:25:22 First degree AV block now present Left ventricular hypertrophy no longer present Possible ischemia no longer present Electronically Signed On 05-05-2019 16:18:46 CDT by Chance Gutierrez [email or web address] <ELECTRONICALLY SIGNED> By: Chance Gutierrez MD, FACC 05/05/19 1618 09 09 Chance Gutierrez MD, FAC /EPI
== END 2019-05-02 23:41 | disposition home or self-care (01) ==
LOC: M.ERS 21:00
PROVIDERS: Personal Emergency Response Attendant
DX: J20.9 Acute bronchitis, unspecified (principal); Z88.2 Allergy status to sulfonamides; Z98.890 Other specified postprocedural states

== ENCOUNTER 2019-10-08 04:07 | Inpatient (IN) | payer MEDICARE, OTHER ==
[~2019-10-08] VITALS: Ht 175.3 cm; Wt 84.8 kg
[~2019-10-08 04:07] MED LIST changes: +ALLOPURINOL 10100 M3 PO; +HYDROXYZIN10 MG/5 ML PO; +IPRAT-ALBUT 0.5-3 ML INH; +NEBULIZER MISCELL; +PREDNISONE50 MG PO; +PROAIR HFA8.5 GM INH
[2019-10-08 04:08] VITALS: BP 152/111
[2019-10-08 04:44] LABS: ABSOLUTE BASOPHILS 0.1 thou/uL (0.0-0.2); ABSOLUTE EOSINOPHILS 0.5 thou/uL (0.0-0.7); ABSOLUTE LYMPHOCYTES 2.5 thou/uL (0.8-5.3); ABSOLUTE NEUTROPHILS 4.6 thou/uL (1.6-8.1); BASOPHILS 0.7 %; EOSINOPHILS 6.1 %; HEMATOCRIT 41.1 % (42.0-52.0); LYMPHOCYTES 28.6 %; MCH 30.4 pg (26.0-34.0); MCV 89.6 fL (80.0-100.0); MONOCYTES 11.4 %; MPV 7.3 fl. (7.2-11.1); NUCLEATED RBCS 0 /100WBC; PLATELET COUNT* 208 thou/uL (150-400); POLYS 53.2 %; RBC 4.59 mil/uL (4.50-6.00); RDW-CV 14.5 % (10.5-14.5); WBC 8.7 thou/uL (4.0-11.0)
[2019-10-08 05:06] LABS: CALCIUM 8.1 mg/dL (8.5-10.1); CREATININE 2.6 mg/dL (0.6-1.3); POTASSIUM 4.2 mmol/L (3.5-5.1)
[2019-10-08 05:16] LABS: ALBUMIN 3.8 g/dL (3.4-5.0); MAGNESIUM 1.8 mg/dL (1.8-2.4); TOTAL BILIRUBIN 0.3 mg/dL (<0.1-1.0); TOTAL PROTEIN 6.7 g/dL (6.4-8.2)
[2019-10-08 05:45] LABS: BE -1.2 mmol/L (-2 to +3); PCO2 43.8 mmHg (35.0-45.0); PO2 75.7 mmHg (75.0-100.0); pH 7.363 (7.340-7.450)
--- NOTE | 2019-10-08 06:44 | NUR ---
SPOKE WITH PT AGREED TO BE ADMITTED, DISCUSSED RELATED TO OXYGEN DEMAND; WILL CONTINUE TO MONITOR
[2019-10-08 08:10] VITALS: BP 134/111
--- NOTE | 2019-10-08 09:30 | NUR ---
PT ARRIVED TO ROOM 103 VIA CART. PT UP IN ROOM. CALL LIGHT WITHIN REACH.ORIENTED TO ROOM
[2019-10-08 10:00] VITALS: BP 128/74
--- NOTE | 2019-10-08 12:28 | 2DMMODE ---
[place] [address] 2 D/M-MODE ECHOCARDIOGRAM Name: MARGARITA JOSHI Room: [address] IN [facility]#: [id number] Admission: 10/08/19 Attend Phys: Debby guardado Sa Discharge: Date of : 54 Date of Service: 10/08/19 1227 Report #: [id number] THIS REPORT FOR: cc: Chance García MD, David L. MD Holkins, John M. MD [facility] ~ APPROVED REPORT Study performed: 10/08/2019 10:25:03 EXAM: Comprehensive 2D, Doppler, and color-flow Echocardiogram Patient Location: In-Patient Room #: [facility] Status: routine BSA: 2.01 HR: 78 bpm BP: 134/111 mmHg Rhythm: NSR Other Information Study Quality: Good Indications Dyspnea 2D Dimensions IVSd: 10.25 (7-11mm) LVOT Diam: 21.91 (18-24mm) LVDd: 55.44 mm PWd: 8.75 (7-11mm) Ascending Ao: 34.28 (22-36mm) LVDs: 44.36 (25-40mm) Aortic Root: 35.16 mm Volumes Left Atrial Volume (Systole) LA ESV Index: 31.40 mL/m2 Aortic Valve AoV Peak Alexis.: 1.20 m/s AO Peak Gr.: 5.80 mmHg LVOT Max P.87 mmHg AO Mean Gr.: 3.25 mmHg LVOT Mean P.97 mmHg LVOT Max V: 0.98 m/s AO V2 VTI: 22.01 cm LVOT Mean V: 0.65 m/s JUDITH (VTI): 3.55 cm2 LVOT V1 VTI: 20.72 [place] [address] 2 D/M-MODE ECHOCARDIOGRAM Name: MARGARITA JOSHI Room: [address] IN ..#: [id number] Admission: 10/08/19 Attend Phys: Debby guardado Sa Discharge: Date of : 54 Date of Service: 10/08/19 1227 Report #: [id number] Mitral Valve E/A Ratio: 0.59 MV Decel. Time: 193.36 ms MV E Max Alexis.: 0.57 m/s MV PHT: 56.08 ms MVA (PHT): 3.92 cm2 TDI E/Lateral E': 6.33 E/Medial E': 8.14 Medial E' Alexis.: 0.07 m/s Lateral E' Alexis.: 0.09 m/s Pulmonary Valve PV Peak Alexis.: 0.98 m/s PV Peak Gr.: 3.87 mmHg Tricuspid Valve RAP Estimate: 5.00 mmHg TR Peak Gr.: 22.26 mmHg RVSP: 27.00 mmHg PA Pressure: 27.00 mmHg Left Ventricle The left ventricle is normal size. There is normal left ventricular wall thickness. Left ventricular systolic function is normal. LVEF is 55%. Grade I - abnormal relaxation pattern. Right Ventricle The right ventricle is normal size. The right ventricular systolic function is normal. Atria The left atrium size is normal. The right atrium size is normal. Aortic Valve Mild aortic valve sclerosis. No aortic regurgitation is present. There is no aortic valvular stenosis. Mitral Valve The mitral valve is normal in structure. There is no mitral valve regurgitation noted. No evidence of mitral valve stenosis. Tricuspid Valve The tricuspid valve is normal in structure. Trace tricuspid regurgitation. No pulmonary hypertension. Pulmonic [place] [address] 2 D/M-MODE ECHOCARDIOGRAM Name: MARGARITA JOSHI Room: [address] IN [facility]#: [id number] Admission: 10/08/19 Attend Phys: Debby guardado Sa Discharge: Date of : 54 Date of Service: 10/08/19 1227 Report #: [id number] The pulmonary valve is normal in structure. There is no pulmonic valvular regurgitation. Great Vessels The aortic root is normal in size. IVC is normal in size and collapses >50% with inspiration. Pericardium There is no pericardial effusion. <Conclusion> The left ventricle is normal size. There is normal left ventricular wall thickness. Left ventricular systolic function is normal. LVEF is 55%. Grade I - abnormal relaxation pattern. The right ventricle is normal size. The left atrium size is normal. Mild aortic valve sclerosis. No aortic regurgitation is present. There is no aortic valvular stenosis. The mitral valve is normal in structure. The tricuspid valve is normal in structure. IVC is normal in size and collapses >50% with inspiration. There is no pericardial effusion. <ELECTRONICALLY SIGNED> By: Robby Quiles MD, FACC 10/08/19 1227 1227 1227 Robby Quiles MD, FACC /INF
--- NOTE | 2019-10-08 13:11 | EKG ---
[place] [address] ELECTROCARDIOGRAM REPORT Name: MARGARITA JOSHI Room: [address] ADM IN M.R.#: [id number] Admission: 10/08/19 Attend Phys: Debby guardado Sa Discharge: Date of : 54 Date of Service: 10/08/19 0415 Report #: [id number] THIS REPORT FOR: //name// 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: [place]HEL[place] : 1950 Requested By: Tena Ybarra Order Number: [id number] MD: Robby Quiles Measurements Intervals [place] Rate: 116 P: 0 CO: 171 QRS: -45 QRSD: 101 T: 104 QT: 325 QTc: 452 Interpretive Statements Sinus tachycardia LAD, consider left anterior fascicular block Low voltage, extremity leads Borderline repolarization abnormality Artifact in lead(s) I,II,III,aVR,aVL,aVF,V1,V4,V5,V6 Compared to ECG 05/02/2019 21:10:44 Low QRS voltage now present Sinus rate has increased First degree AV block no longer present Electronically Signed On 10-08-2019 13:10:21 CDT by Robby Quiles [email or web address] <ELECTRONICALLY SIGNED> By: Robby Quiles MD, [facility] 10/08/19 1310 0415 0415 Robby Quiles MD, [facility] /EPI
--- NOTE | 2019-10-08 16:28 | NUR ---
PT UP IN ROOM WITH STEADY GAIT. PT AFEBRILE. OCASSIONAL COUGH. IV ANTIBIOTICS INFUSING. DENIES PAIN. PT REMAINS IN EMHANCED PRECAUTIONS FOR POSSIBLE COVID 19
--- NOTE | 2019-10-08 18:12 | NUR ---
HOURLY ROUNDING DONE ON NEEDED BASIS TO LIMIT STAFF EXPOSURE TO COVID 19. PT CALLS APPROPRIATELY FOR ASSIST AND INFORMED OF THIS
[2019-10-08 22:29] VITALS: BP 113/71
[2019-10-09 03:30] VITALS: BP 106/67
--- NOTE | 2019-10-09 03:34 | NUR ---
ASSUMED CARE OF PT AT 1900. PT IS ALERT AND ORIENTED. VSS. PERRLA. NO COMPLAINTS OF PAIN. PT IS ON ROOM AIR. PT IS IN SINUS RYTHM ON THE TELEMETRY. PT IS RESTING COMFORTABLY IN BED. RESPIRATIONS ARE EVEN AND NONLABORED. WILL CONTINUE TO MONITOR PT.
[2019-10-09 06:47] LABS: ALBUMIN 3.9 g/dL (3.4-5.0); CALCIUM 8.7 mg/dL (8.5-10.1); CREATININE 2.1 mg/dL (0.6-1.3); POTASSIUM 3.9 mmol/L (3.5-5.1); TOTAL BILIRUBIN 0.3 mg/dL (<0.1-1.0); TOTAL PROTEIN 6.5 g/dL (6.4-8.2)
[2019-10-09 09:30] VITALS: BP 141/75
[2019-10-09] MEDS ORDERED: AZITHROMYCIN 2250 MG PO (10:57)
[2019-10-09] MEDS ORDERED: CEFDINIR300 MG PO (10:57)
[2019-10-09 13:55] VITALS: BP 141/75
[2019-10-09 15:40] VITALS: BP 141/75
--- NOTE | 2019-10-09 19:57 | NUR ---
I ASSUMED CARE OF THE PATIENT AT 0700. HE IS ALERT AND ORIENTED X4 AND IS UP AD ESTEFANIA. BED IS IN THE LOW LOCKED POSITION AND CALL LIGHT IS IN REACH. HOURLY ROUNDING IS COMPLETED AND PATIENT NEEDS ARE MET. PAIN IS DENIED. ISOLATION IS MAINTAINED. PATIENT DISCHARGED TO HOME AT 1540 AND SCRIPTS WERE CALLED IN. HE UNDERSTANDS FOLLOWUP.
[2019-10-10 02:07] LABS: GLYCOHEMOGLOBIN (HGB A1C) 5.8 % (4.8-5.6)
== END 2019-10-09 15:45 | disposition home or self-care (01) | DRG 280 ==
LOC: M.ERS 04:07 → M.ORTHSURG 05:21 → M.TBA-ER 05:21 → M.ORTHSURG 08:00
PROVIDERS: Internal Medicine; Personal Emergency Response Attendant; ADMIT Family Medicine
DX: I21.A1 Myocardial infarction type 2 (principal); I50.23 Acute on chronic systolic (congestive) heart failure; J96.01 Acute respiratory failure with hypoxia; I13.0 Hypertensive heart and chronic kidney disease with heart failure and stage 1 through stage 4 chronic kidney disease, or unspecified chronic kidney disease; N17.9 Acute kidney failure, unspecified; I42.8 Other cardiomyopathies; J45.51 Severe persistent asthma with (acute) exacerbation; J20.9 Acute bronchitis, unspecified; R73.9 Hyperglycemia, unspecified; N18.3 Chronic kidney disease, stage 3 (moderate); Z90.89 Acquired absence of other organs; Z79.899 Other long term (current) drug therapy; Z88.2 Allergy status to sulfonamides; Z03.818 Encounter for observation for suspected exposure to other biological agents ruled out

== ENCOUNTER 2020-08-14 03:02 | Emergency (ER) | payer MEDICARE, OTHER ==
[~2020-08-14] VITALS: Ht 170.2 cm; Wt 76.2 kg
[~2020-08-14 03:02] MED LIST changes: +AZITHROMYCIN 2250 MG PO; +CEFDINIR300 MG PO
[2020-08-14 03:25] LABS: ABSOLUTE BASOPHILS 0.1 thou/uL (0.0-0.2); ABSOLUTE EOSINOPHILS 0.3 thou/uL (0.0-0.7); ABSOLUTE LYMPHOCYTES 1.7 thou/uL (0.8-5.3); ABSOLUTE MONOCYTES 0.9 thou/uL (0.0-1.2); ABSOLUTE NEUTROPHILS 4.4 thou/uL (1.6-8.1); BASOPHILS 1.1 %; EOSINOPHILS 4.7 %; HEMATOCRIT 42.9 % (42.0-52.0); LYMPHOCYTES 22.7 %; MCH 29.2 pg (26.0-34.0); MCHC 32.6 g/dL (28.0-37.0); MCV 89.4 fL (80.0-100.0); MONOCYTES 11.7 %; MPV 7.1 fl. (7.2-11.1); NUCLEATED RBCS 0 /100WBC; PLATELET COUNT* 209 thou/uL (150-400); POLYS 59.8 %; RBC 4.79 mil/uL (4.50-6.00); RDW-CV 14.3 % (10.5-14.5); WBC 7.4 thou/uL (4.0-11.0)
[2020-08-14 03:36] LABS: CALCIUM 8.5 mg/dL (8.5-10.1); CREATININE 1.8 mg/dL (0.6-1.3)
[2020-08-14 03:38] LABS: APTT 23.9 Seconds (25.0-31.3); INR 0.9; PROTIME 9.6 Seconds (9.20-11.50)
[2020-08-14 03:51] LABS: ALBUMIN 3.7 g/dL (3.4-5.0); TOTAL BILIRUBIN 0.1 mg/dL (<0.1-1.0); TOTAL PROTEIN 6.6 g/dL (6.4-8.2)
[2020-08-14] MEDS ORDERED: ZOFRAN ODT4 MG DISSOLVE (07:51)
[2020-08-14 08:09] VITALS: BP 147/78
--- NOTE | 2020-08-14 10:33 | EKG ---
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[place] : 1950 Requested By: Tena Ybarra Order Number: [id number] MD: Koby Hanson Measurements Intervals [place] Rate: 78 P: 69 MD: 216 QRS: -56 QRSD: 99 T: 57 QT: 376 QTc: 429 Interpretive Statements Sinus rhythm Borderline prolonged MD interval Left anterior fascicular block Borderline low voltage, extremity leads Probable anteroseptal infarct, old Baseline wander in lead(s) V5 Compared to ECG 10/08/2019 04:15:40 Myocardial infarct finding now present Sinus tachycardia no longer present Electronically Signed On 08-14-2020 10:33:44 SLEEVE SETTER LOCKSTITCH by Koby Hanson [email or web address] <ELECTRONICALLY SIGNED> By: Nel Hanson MD, [facility] 08/14/20 1033 7 7 Nel Hanson MD, [facility] /EPI
--- NOTE | 2020-08-15 12:40 | EKG ---
[place] [address] ELECTROCARDIOGRAM REPORT Name: MARGARITA JOSHI Room: [facility]#: [id number] Admission: 08/14/20 Attend Phys: Discharge: 08/14/20 Date of : 54 Date of Service: 08/14/20 0736 Report #: [id number] THIS REPORT FOR: //name// [facility] ED Test Date: 2020-08-14 Test Time: 07:36:15 Pat Name: MARGARITA JOSHI Department: Room: Gender: Manager Hospice: : 1950 Requested By: Marco Mckinley Order Number: [id number] MD: Koby Hanson Measurements Intervals [place] Rate: 68 P: 82 OK: 239 QRS: -43 QRSD: 94 T: 32 QT: 409 QTc: 436 Interpretive Statements Sinus rhythm Prolonged [place] interval Left anterior fascicular block Borderline low voltage, extremity leads Compared to ECG 08/14/2020 03:08:11 Myocardial infarct finding no longer present Electronically Signed On 08-15-2020 12:40:25 CAVITY PUMP OPERATOR by Koby Hanson [email or web address] <ELECTRONICALLY SIGNED> By: Nel Hanson MD, [facility] 08/15/20 1240 Nel Hanson MD, [facility] /EPI
== END 2020-08-14 08:12 | disposition home or self-care (01) ==
LOC: M.ERS 03:02
PROVIDERS: Personal Emergency Response Attendant
DX: R00.2 Palpitations (principal); R07.89 Other chest pain; R61 Generalized hyperhidrosis; R11.0 Nausea; J45.909 Unspecified asthma, uncomplicated; I50.9 Heart failure, unspecified; Z90.89 Acquired absence of other organs; Z88.2 Allergy status to sulfonamides

== ENCOUNTER → 2020-10-27 | Outpatient (CLI) | payer MEDICARE, OTHER ==
[~2020-10-27] MED LIST changes: +ZOFRAN ODT4 MG DISSOLVE
--- NOTE | 2020-10-27 15:44 | 2DMMODE ---
[place] [address] 2 D/M-MODE ECHOCARDIOGRAM Name: MARGARITA JOSHI Room: [facility]#: [id number] Admission: 10/27/20 Attend Phys: Devin Perez, Discharge: Date of : 54 Date of Service: 10/27/20 1544 Report #: [id number] THIS REPORT FOR: cc: Carol Brown Tammy RNP Holkins, John M. MD [facility] ~ APPROVED REPORT Study performed: 10/27/2020 13:10:32 EXAM: Comprehensive 2D, Doppler, and color-flow Echocardiogram Patient Location: Out-Patient BSA: 1.86 HR: 53 bpm BP: 165/ mmHg Rhythm: NSR Other Information Study Quality: Good Indications Cardiomyopathy 2D Dimensions IVSd: 10.45 (7-11mm) LVOT Diam: 22.22 (18-24mm) LVDd: 48.19 mm PWd: 9.91 (7-11mm) Ascending Ao: 34.24 (22-36mm) LVDs: 31.15 (25-40mm) Aortic Root: 35.66 mm Volumes Left Atrial Volume (Systole) LA ESV Index: 22.60 mL/m2 Aortic Valve AoV Peak Alexis.: 1.02 m/s AO Peak Gr.: 4.18 mmHg LVOT Max P.72 mmHg AO Mean Gr.: 2.12 mmHg LVOT Mean P.26 mmHg LVOT Max V: 0.83 m/s AO V2 VTI: 23.88 cm LVOT Mean V: 0.51 m/s JUDITH (VTI): 3.44 cm2 LVOT V1 VTI: 21.19 [place] [address] 2 D/M-MODE ECHOCARDIOGRAM Name: MARGARITA JOSHI Room: [facility]#: [id number] Admission: 10/27/20 Attend Phys: Devin Perez, Discharge: Date of : 54 Date of Service: 10/27/20 1544 Report #: [id number] E/A Ratio: 0.67 MV Decel. Time: 531.96 ms MV E Max Alexis.: 0.37 m/s MV PHT: 154.27 ms MVA (PHT): 1.43 cm2 TDI E/Lateral E': 5.29 E/Medial E': 5.29 Medial E' Alexis.: 0.07 m/s Lateral E' Alexis.: 0.07 m/s Pulmonary Valve PV Peak Alexis.: 0.86 m/s PV Peak Gr.: 2.95 mmHg Left Ventricle The left ventricle is normal size. There is normal LV segmental wall motion. There is normal left ventricular wall thickness. Left ventricular systolic function is normal. The left ventricular ejection fraction is within the normal range. LVEF is 50-55%. Grade I - abnormal relaxation pattern. Right Ventricle The right ventricle is normal size. The right ventricular systolic function is normal. Atria The left atrium size is normal. The right atrium size is normal. Aortic Valve Mild aortic valve sclerosis. Trace aortic regurgitation. There is no aortic valvular stenosis. Mitral Valve The mitral valve is normal in structure. Trace mitral regurgitation. No evidence of mitral valve stenosis. Tricuspid Valve The tricuspid valve is normal in structure. Unable to assess PA pressure. Trace tricuspid regurgitation. Pulmonic Valve The pulmonary valve is normal in structure. Trace pulmonic regurgitation[place] [address] 2 D/M-MODE ECHOCARDIOGRAM Name: MARGARITA JOSHI Room: [facility]#: [id number] Admission: 10/27/20 Attend Phys: Devin Perez, Discharge: Date of : 54 Date of Service: 10/27/20 1544 Report #: [id number] The aortic root is normal in size. IVC is normal in size and collapses >50% with inspiration. Pericardium There is no pericardial effusion. <Conclusion> The left ventricle is normal size. There is normal left ventricular wall thickness. Left ventricular systolic function is normal. The left ventricular ejection fraction is within the normal range. LVEF is 50-55%. Grade I - abnormal relaxation pattern. The right ventricle is normal size. The left atrium size is normal. Mild aortic valve sclerosis. Trace aortic regurgitation. There is no aortic valvular stenosis. The mitral valve is normal in structure. Trace mitral regurgitation. The tricuspid valve is normal in structure. IVC is normal in size and collapses >50% with inspiration. There is no pericardial effusion. There is normal LV segmental wall motion. <ELECTRONICALLY SIGNED> By: Robby Quiles MD, [facility] 10/27/20 1544 1544 1544 Robby Quiles MD, FACC /INF
== END ==
LOC: M.CRD 13:00
PROVIDERS: ATTEND Internal Medicine Cardiovascular Disease
DX: I35.1 Nonrheumatic aortic (valve) insufficiency (principal); I42.8 Other cardiomyopathies